=== PATIENT | female | born 1985 | race Caucasian/White ===

== ENCOUNTER 2023-07-23 01:58 | Inpatient (IN) ==
[2023-07-23] MEDS: HALOPERIDOL LACTATE 5 MG/ML 1 ML VIAL ONE (03:00)
[2023-07-23] MEDS: HALOPERIDOL LACTATE 5 MG/ML 1 ML VIAL IM PRN (03:00)
[2023-07-23] MEDS: LORazepam 1 MG/1 ML SYR ED Inj Use IM PRN (03:00)
[2023-07-23 05:01] LABS: Basophils # (auto) 0.05 K/uL (0.00-0.20); Basophils % (auto) 0.5 %; Eosinophils # (auto) 0.12 K/uL (0.00-0.50); Eosinophils % (auto) 1.1 %; Hemoglobin 13.5 g/dl (12.0-16.0); Immature Granulocytes # (auto) 0.03 K/uL (0.01-0.20); Immature Granulocytes % (auto) 0.3 %; Lymphocytes # (auto) 1.45 K/uL (1.20-3.40); Lymphocytes % (auto) 13.8 %; Mean Corpuscular Hemoglobin 29.7 pg (25.0-34.0); Mean Corpuscular Hgb Conc 32.9 g/dL (32.0-36.0); Mean Corpuscular Volume 90.3 fL (80.0-100.0); Mean Platelet Volume 10.6 fL (9.4-12.4); Monocytes # (auto) 0.69 K/uL (0.11-0.59); Monocytes % (auto) 6.6 %; Neutrophils # (auto) 8.16 K/uL (1.40-6.50); Neutrophils % (auto) 77.7 %; Platelet Count 246 K/uL (130-400); RDW Coefficient of Variation 12.5 % (11.5-14.5); RDW Standard Deviation 41.2 fL (36.4-46.3); Red Blood Count 4.54 M/uL (4.20-5.40)
[2023-07-23 05:18] LABS: Albumin Globulin Ratio 1.6 (0.9-2); Albumin Level 4.5 gm/dl (3.4-5.0); BUN Creatinine Ratio 12.9 (10-20); Bilirubin,Total 0.3 mg/dl (0.2-1.0); Calcium 9.2 mg/dl (8.6-10.3); Creatinine Clr Calc Pharmacy 71.5 ml/min; Est GFR (Non-African American) 78.5 ml/min; Globulin 2.9 gm/dl (2.5-4.0); Potassium 4.1 mmol/L (3.5-5.1); Total Protein 7.4 gm/dl (6.0-8.3)
[2023-07-23 05:28] LABS: Acetaminophen < 3 ug/ml (10-30); Salicylate < 3.0 mg/dl (3.0-30)
--- NOTE | 2023-07-23 05:28 | Emergency Department Note ---
Impression & Plan Psychosis ED Provider Note ED Provider Note NAME: LOS PEREZ AGE:38 SEX: Female : 1985 ARRIVES VIA: EMS, police INFORMANT: Patient ED PROVIDER(s): Marie Thurman DO CHIEF COMPLAINT: Mental health evaluation HPI: This is a 38-year-old female who presents emergency department for mental health evaluation. Patient found wandering around in the dark, having parked her car in a turning peter. Patient reported to EMS that she drove here in a rental car from [place]. She could answer some questions of orientation for EMS however reported also seeing demons on the road that made it difficult to drive. She reported she tried to take pictures of them. She does not know anyone in the area and does not know where she was driving to. EMS initially called due to concern for safety although stated PD on scene did not feel they had grounds to 302 as she denied SI and HI. Patient here refusing to answer any additional questions. PAST MEDICAL HISTORY:See Below PAST SURGICAL HISTORY:See Below FAMILY HISTORY:See Below SOCIAL HISTORY:See Below HOME MEDICATIONS:See Below ALLERGIES:See Below VITALS:See Below PHYSICAL EXAMINATION: GENERAL: alert, anxious appearing, well nourished, refusing to stay in her room, refusing to change into scrubs, refusing to answer questions EYE EXAM: normal conjunctiva, PERRL and EOM's grossly intact NECK: supple, no nuchal rigidity, no adenopathy, non-tender LUNGS: Clear to auscultation. Normal chest wall mechanics, no w/r/r HEART: no murmurs, S1 normal and S2 normal ABDOMEN: abdomen soft, non-tender, normo-active bowel sounds, no masses, no rebound or guarding. SKIN: no rashes, petechiae, orbruising UPPER EXTREMITIES: upper extremities are grossly normal. FROM, nml pulses b/l. LOWER EXTREMITIES: No pitting edema. FROM, nml pulses b/l. NEURO EXAM: Can answer some questions of orientation but cannot provide information as to how she got here, why she is here, where she is from, or past medical history and is refusing to answer most questions, cranial nerves II-XII grossly intact, normal speech, no facial droop,nogross weakness of arms, no gross weakness of legs. Gross sensation intact. No ataxia. Vital Signs: reviewed and remarkable Differential Diagnosis: mood disorder, suicidal ideation, anxiety, depression, substance abuse, toxidrome, infection, hypoglycemia, electrolyte abnormalities, ICH as well as others were considered. MEDICAL DECISION MAKING: This is a 38-year-old female who presents emergency department with psychosis. She was brought in by EMS and police. Patient was initially unable to be redirected and was uncooperative with protocols in the department. She refused to allow staff initially to draw labs, refused to change, and was refusing to even stay in her room. She escalated despite attempts at redirection and verbal de-escalation and so was restrained in order to provide additional anxiolytics IM. Once patient calmed down the restraints were removed. 302 petition written by quarter backer. Patient with episcopalian focus, delusions, and paranoia. Noncompliant with medications and follow-up. 302 upheld by me. Patient signed out to Dr. Valle in the morning awaiting final disposition Consultation(s): [id number]: 302 upheld by me after initial petitioning statement from EMS and police. Patient did ultimately provide a phone number that she stated was for her mother however there was no answer or call back from this number. Case management was able to contact a friend who provided additional information stating that she has had worsening abnormal behavior over the last several weeks, recently quit her job, and has not been able to see her children due to her bizarre behavior. Friend reported she does have a prior history of schizophrenia. ER Treatment Provided: See below Diagnostics Interpreted By Me: -Laboratory studies: As stated above and show below. Triage Nursing Note Reviewed Prior/Outside Records Reviewed Past Med/Surg History Social History Smoking Status: Current every day smoker Preferred Language: Setswana Communication Ability: Effective Retail Manager In Training Required: No Beliefs That Will Affect Care: None Feels Safe at Home: Yes Gender Identity: Female Assistive Devices: None Allergies Allergies Allergy/AdvReac Type Severity Reaction Status Date / Time prochlorperazine AdvReac Unknown Verified 07/23/23 02:29 [From Compazine] Results & Data (ED) Vital Signs Vital Signs - 24 hr 07/23/23 02:20 07/23/23 03:28 07/23/23 03:29 Pulse Rate 95 H Pulse Rate [Apical] 104 H Pulse Rate from SpO2 Sensor Pulse Rhythm [Apical] Pulse Strength [Apical] Respiratory Rate 22 Respiratory Effort / Characteristics Respiratory Depth Respiratory Pattern Blood Pressure Blood Pressure [Right Arm] 123/84 Blood Pressure Mean Blood Pressure Mean [Right Arm] 97 Blood Pressure Position [Right Arm] Lying Pulse Oximetry 97 Oxygen Delivery Method Room Air Sepsis New/Unexplained Change in Mental Status N/A Sepsis Action Taken by Nursing No Action Required 07/23/23 04:06 07/23/23 04:30 07/23/23 05:00 Pulse Rate 85 88 Pulse Rate [Apical] 93 H Pulse Rate from SpO2 Sensor Pulse Rhythm [Apical] Regular Pulse Strength [Apical] Normal Respiratory Rate 17 20 19 Respiratory Effort / Characteristics Non-Labored Spontaneous Respiratory Depth Normal Respiratory Pattern Blood Pressure 113/81 114/74 Blood Pressure [Right Arm] 109/71 Blood Pressure Mean 91 87 Blood Pressure Mean [Right Arm] 83 Blood Pressure Position [Right Arm] Lying Pulse Oximetry 98 99 99 Oxygen Delivery Method Room Air Room Air Room Air Sepsis New/Unexplained Change in Mental Status Sepsis Action Taken by Nursing 07/23/23 05:30 07/23/23 06:00 07/23/23 07:22 Pulse Rate 71 82 105 H Pulse Rate [Apical] Pulse Rate from SpO2 Sensor 97 H Pulse Rhythm [Apical] Pulse Strength [Apical] Respiratory Rate 17 16 18 Respiratory Effort / Characteristics Respiratory Depth Respiratory Pattern Blood Pressure 121/73 135/97 Blood Pressure [Right Arm] Blood Pressure Mean 89 109 Blood Pressure Mean [Right Arm] Blood Pressure Position [Right Arm] Pulse Oximetry 98 99 100 Oxygen Delivery Method Room Air Room Air Sepsis New/Unexplained Change in Mental Status Sepsis Action Taken by Nursing 07/23/23 07:30 07/23/23 07:30 07/23/23 08:00 Pulse Rate 92 H 88 87 Pulse Rate [Apical] Pulse Rate from SpO2 Sensor 90 88 88 Pulse Rhythm [Apical] Pulse Strength [Apical] Respiratory Rate 16 16 16 Respiratory Effort / Characteristics Respiratory Depth Respiratory Pattern Blood Pressure 129/92 129/92 117/82 Blood Pressure [Right Arm] Blood Pressure Mean 104 104 93 Blood Pressure Mean [Right Arm] Blood Pressure Position [Right Arm] Pulse Oximetry 99 100 96 Oxygen Delivery Method Sepsis New/Unexplained Change in Mental Status Sepsis Action Taken by Nursing 07/23/23 08:30 07/23/23 09:00 07/23/23 09:30 Pulse Rate 98 H 97 H Pulse Rate [Apical] Pulse Rate from SpO2 Sensor 99 H 98 H Pulse Rhythm [Apical] Pulse Strength [Apical] Respiratory Rate 16 18 Respiratory Effort / Characteristics Respiratory Depth Respiratory Pattern Blood Pressure 114/74 117/76 119/81 Blood Pressure [Right Arm] Blood Pressure Mean 87 89 92 Blood Pressure Mean [Right Arm] Blood Pressure Position [Right Arm] Pulse Oximetry 95 95 Oxygen Delivery Method Sepsis New/Unexplained Change in Mental Status Sepsis Action Taken by Nursing 07/23/23 09:30 07/23/23 10:00 07/23/23 12:03 Pulse Rate 74 89 Pulse Rate [Apical] 89 Pulse Rate from SpO2 Sensor 81 90 Pulse Rhythm [Apical] Pulse Strength [Apical] Respiratory Rate 16 16 16 Respiratory Effort / Characteristics Non-Labored Spontaneous Respiratory Depth Normal Respiratory Pattern Regular Blood Pressure 103/69 Blood Pressure [Right Arm] 117/80 Blood Pressure Mean 80 Blood Pressure Mean [Right Arm] 92 Blood Pressure Position [Right Arm] Pulse Oximetry 98 98 96 Oxygen Delivery Method Room Air Sepsis New/Unexplained Change in Mental Status Sepsis Action Taken by Nursing 07/23/23 14:00 Pulse Rate Pulse Rate [Apical] 89 Pulse Rate from SpO2 Sensor Pulse Rhythm [Apical] Pulse Strength [Apical] Respiratory Rate 14 Respiratory Effort / Characteristics Respiratory Depth Respiratory Pattern Blood Pressure Blood Pressure [Right Arm] 125/88 Blood Pressure Mean Blood Pressure Mean [Right Arm] 100 Blood Pressure Position [Right Arm] Pulse Oximetry 98 Oxygen Delivery Method Room Air Sepsis New/Unexplained Change in Mental Status Sepsis Action Taken by Nursing Laboratory Data 07/23/23 04:45 07/23/23 04:45 Lab Results 07/23/23 07/23/23 07/23/23 Range/Units 04:30 04:45 13:24 WBC 10.50 (4.8-10.8) K/ul RBC 4.54 (4.20-5.40) M/uL Hgb 13.5 (12.0-16.0) g/dl Hct 41.0 (37.0-47.0) % MCV 90.3 (80.0-100.0) fL MCH 29.7 (25.0-34.0) pg MCHC 32.9 (32.0-36.0) g/dL RDW Std Deviation 41.2 (36.4-46.3) fL RDW Coeff of Garth 12.5 (11.5-14.5) % Plt Count 246 (130-400) K/uL MPV 10.6 (9.4-12.4) fL Immature Gran % (Auto) 0.3 % Neut % (Auto) 77.7 % Lymph % (Auto) 13.8 % [place] % (Auto) 6.6 % Eos % (Auto) 1.1 % Baso % (Auto) 0.5 % Neut # (Auto) 8.16 H (1.40-6.50) K/uL Lymph # (Auto) 1.45 (1.20-3.40) K/uL [place] # (Auto) 0.69 H (0.11-0.59) K/uL Eos # (Auto) 0.12 (0.00-0.50) K/uL Baso # (Auto) 0.05 (0.00-0.20) K/uL Immature Gran # (Auto) 0.03 (0.01-0.20) K/uL Sodium 136 (136-145) mmol/L Potassium 4.1 (3.5-5.1) mmol/L Chloride 101 (98-107) mmol/L Carbon Dioxide 29 (21-32) mmol/L Anion Gap 6 (3-11) BUN 12 (6-23) mg/dl Creatinine 0.93 (0.6-1.2) mg/dl Est Cr Clr Drug Dosing 71.5 ml/min Est GFR ( Amer) 91.0 ml/min Est GFR (Non-Af Amer) 78.5 ml/min BUN/Creatinine Ratio 12.9 (10-20) Glucose 101 H (70-99(Fasting)) mg/dl Calcium 9.2 (8.6-10.3) mg/dl Total Bilirubin 0.3 (0.2-1.0) mg/dl AST 21 (13-39) U/L ALT 12 (7-52) U/L Alkaline Phosphatase 37 (34-104) U/L Total Protein 7.4 (6.0-8.3) gm/dl Albumin 4.5 (3.4-5.0) gm/dl Globulin 2.9 (2.5-4.0) gm/dl Albumin/Globulin Ratio 1.6 (0.9-2) TSH 7.399 H (0.300-4.500) uIu/ml Free T4 0.79 (0.61-1.60) ng/dl Urine Color Red Urine Appearance Cloudy A (Clear) Urine pH 8.0 H (4.5-7.5) Ur Specific [place] 1.023 (1.000-1.030) Urine Protein Trace H (Negative) Urine Glucose (UA) Negative (Negative) Urine Ketones Negative (Negative) Urine Blood 3+ H (Negative) Urine Nitrite Positive A (Negative) Urine Bilirubin Negative (Negative) Urine Urobilinogen Negative (Negative) Ur Leukocyte Esterase 2+ H (Negative) Urine WBC (Auto) >30 H (0-5) /hpf Urine RBC (Auto) >30 H (0-4) /hpf U Hyaline Cast (Auto) 1-5 (0-5) /lpf U Epithel Cells (Auto) >30 H (0-5) /lpf Urine Bacteria (Auto) 3+ H (Negative) Urine Test Negative (Negative) Salicylates < 3.0 L (3.0-30) mg/dl Urine Opiates Screen Neg (Neg) Ur Methadone, Qual Neg (Neg) Acetaminophen < 3 L (10-30) ug/ml Urine Barbiturates Neg (Neg) Ur Phencyclidine (PCP) Neg (Neg) U Amphetamin/Meth Scrn Pos H (Neg) MDMA (Ecstasy) Screen Pos H (Neg) U Benzodiazepines Scrn Pos H (Neg) Ur Cocaine Metabolite Neg (Neg) U Marijuana (THC) Screen Neg (Neg) Ethyl Alcohol mg/dL < 10.0 (<10.0) mg/dl SARS-CoV-2, RNA, NAAT NEGATIVE (NEGATIVE) Administered Medications Discontinued Medications Cefdinir (Cefdinir 300 Mg Cap) 600 mg PO ONE STA; Protocol Stop: 07/23/23 14:08 Last Admin: 07/23/23 14:12 Dose: 600 mg Documented By: KLAUS Haloperidol Lactate (Haloperidol Lactate 5 Mg/Ml 1 Ml Vial) 5 mg IM NOW PRN PRN Reason: Agitation Stop: 08/22/23 02:49 Last Admin: 07/23/23 03:00 Dose: 5 mg Documented By: KAILEY Haloperidol Lactate (Haloperidol Lactate 5 Mg/Ml 1 Ml Vial) Confirm Administered Dose 5 mg .ROUTE .STK-MED ONE Stop: 07/23/23 02:53 Last Admin: 07/23/23 03:00 Dose: Not Given Documented By: KAILEY Lorazepam (Lorazepam 1 Mg/1 Ml Syr Ed Inj Use) 2 mg IM ONE PRN PRN Reason: Agitation Stop: 08/22/23 02:49 Last Admin: 07/23/23 03:00 Dose: 2 mg Documented By: KAILEY Discharge Plan Visit Data Stated Complaint: MENTAL HEALTH ISSUES ED Provider: Devonte Salazar Discharge Problem: Psychosis Patient Disposition: Admitted As Inpatient Discharge Instructions Interventions: ED Discharge Assessment Last Done: 07/23/23 17:24
[2023-07-23 05:32] LABS: Thyroid Stimulating Hormone 7.399 uIu/ml (0.300-4.500)
[2023-07-23 06:09] LABS: T4 Free Thyroxine 0.79 ng/dl (0.61-1.60)
--- NOTE | 2023-07-23 07:26 | Emergency Department Note ---
ED Visit Note I received this patient at change of shift signout from Dr. Thurman. Please see her note for initial history and physical exam. The patient is a [age]-year-old female who presented to the emergency department with psychosis. She is not from her area. She required physical as well as chemical restraint. 302 petition has been filled out but the patient is still waiting for formal evaluation and medical clearance. The patient was evaluated by the mental health disease case manager rn. The patient was found to have signs of urinary tract infection on urinalysis. She was treated with oral antibiotics in the emergency department The patient is currently being evaluated by the mental-health disease case manager rn. She was felt to be in need of mental health treatment. Bed search is currently underway. The patient was signed out to Dr. Salazar at change of shift. Please see his note for further disposition and treatment. .
[2023-07-23 13:47] LABS: Pregnancy Test, Urine Negative (Negative)
[2023-07-23 13:55] LABS: Appearance Urine Cloudy (Clear); Bacteria Urine Automated 3+ (Negative); Bilirubin Urine Negative (Negative); Blood Urine 3+ (Negative); Color Urine Red; Epithelial Cell Urine Auto >30 /lpf (0-5); Glucose Urine UA Negative (Negative); Ketones Urine Negative (Negative); Leukocyte Esterase Urine 2+ (Negative); Nitrite Urine Positive (Negative); RBC Urine Automated >30 /hpf (0-4); Specific Gravity Urine 1.023 (1.000-1.030); Urobilinogen Urine Negative (Negative); WBC Urine Automated >30 /hpf (0-5)
[2023-07-23 14:02] LABS: Protein Urine Trace (Negative)
[2023-07-23] MEDS: CEFDINIR 300 MG CAP PO STA (14:12)
[2023-07-23 14:23] LABS: Amphetamines+Metham, Urine Pos (Neg); Barbiturates, Urine Neg (Neg); Benzodiazepine, Urine Pos (Neg); Cocaine, Urine Neg (Neg); MDMA (Ecstacy), Urine Pos (Neg); Marijuana, Urine Neg (Neg); Methadone, Urine Neg (Neg); Opiate, Urine Neg (Neg); Phencyclidine, Urine Neg (Neg)
--- NOTE | 2023-07-23 15:57 | Emergency Department Note ---
ED Visit Note 1555: Sign out from Dr. Valle. 38-year-old female with schizophrenia 3022 awaiting placement. 1725: Patient mated to [address]. .
[2023-07-23] MEDS ORDERED: MAGNESIUM HYDROXIDE SUSP 30 ML UDC PO PRN (17:47)
[2023-07-23] MEDS ORDERED: SODIUM CHLORIDE 0.65% NA SOLN 45 ML (OCEAN) PRN (17:47)
[2023-07-23] MEDS ORDERED: ALUMINUM/MAGNESIUM SUSP 30 ML UDC PO PRN (17:47)
[2023-07-23] MEDS ORDERED: ACETAMINOPHEN 325 MG TAB PO PRN (17:47)
[2023-07-23] MEDS ORDERED: hydrOXYzine HCl 25 MG TAB PO PRN (17:47)
[2023-07-23] MEDS ORDERED: BISMUTH SUBSALICYLATE LIQD 236 ML PO PRN (17:47)
[2023-07-24] MEDS: hydrOXYzine HCl 25 MG TAB PO PRN (01:54)
--- NOTE | 2023-07-24 12:25 | History & Physical ---
Date of Service July 24, 2023 Impression / Recommendations Impression This is a somewhat difficult patient to interview. She is very convinced there are some supernatural or samaritan things going on around her all the time and is made very strong connections between various things in her life. Unfortunately, she came into our hospital with methamphetamine in her system and so it is difficult to sort out exactly what the cause is. There is possibly a family history of psychosis as well. It also sounds like she has been abusing benzodiazepines as well. When she is doing well, it sounds like she has a pretty reasonable life and is able to hold down a job and share custody of her children with her ex. for now, I am calling this unspecified schizophrenia spectrum and other psychotic disorder although it this could be the result of methamphetamine intoxication. Time will tell. 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 Patient is admitted here for safety, further evaluation, and treatment on a 302. We have her in her room that is private because of how bizarre she had been acting. We also will be doing every 15 minute checks for safety. 2. I advised the patient to try to take part in our therapeutic milieu, attend groups and activities, maintain good hygiene, and try not to isolate. 3. I am going to resume her medications which include buspirone, Lexapro, losartan, and some as needed Ativan for now. We will also be watching for any signs of benzodiazepine withdrawal. 4. I am going to start Macrobid to help treat her UTI. 5. We are going to start Latuda 40 mg daily with dinner. I am choosing this because her doctor had written a prescription for it and it is an antipsychotic so it may help with her psychotic symptoms. I reviewed the uses, side effects, and time course and she gave informed consent. She knows we have to give it to her with a meal. 6. I discussed the case with the social work manager. They are going to try to set up a family meeting that this weekend and will try to set up appointments for outpatient care today because most places will be closed for the next 3 days due to the holiday. 7. Disposition is unclear. We will likely discharge her over the weekend because her 302 will be expiring. However, if we reach a point where I am not sure if she is safe I may need to refile a 302 although I hope I do not have to. It is too late to file a 303 today and there is no hearing that can take place in the next 3 days. Today I spent about 110 minutes on the case. This included meeting with the patient, reviewing the chart, nursing report, multidisciplinary team meeting, meeting again with the social work manager, orders, and documentation. Suicide Risk Level Suicide Risk Level: Low (q15 min observation checks) Protective Factors Assessment Employed: No (Quit job 3 weeks ago) Psychiatric History Identifying Data LOS PEREZ is a 38-year-old F from [place], [place] who came into our emergency room. She had been acting bizarrely, allegedly seeing demons when she was on the highway driving her car. She comes to us on a 302 involuntary commitment. Chief Complaint "Following the signs." History of Present Illness Patient has never been to our facility before, but she has been in a psychiatric hospital once before. She says that she had been traveling recently. She had rented a car and driven to some type of nature preserve in [place], [place]. She was following a number of connections she had made among many different things with numbers. She was looking where "the light and the dark combine." She says that her GPS was not working on her phone and she ended up getting lost and driving in circles. She got very frustrated. She started c rying and got lost and apparently approached some type of senior care and asked to use their phone. She says that she asked them to call 911 but they would not do it so she called them herself. In the emergency department she ended up getting agitated which required physical and chemical restraint. She says that she had been reading Steffius's prophecies and the Book of Revelation. She was seeing angels, not demons. She was talking about duality between multiple things. For example motherhood is a positive thing and connected to protons in atoms. Similarly, fatherhood is a negative thing and connected to electrons in atoms. She says that she feels like she is in a movie but she does not know the prescription. Things can sometimes get scary or overwhelming. For example, she said that she was seeing the energy of people. She says that she is currently renting a house in [place], [place]. She was working as a medical staff manager. She says a lot of the people she knows at home know it is happening with her but she feels like they are somehow conspiring against her. They will say things like "you need help," but she thinks that they are lying. She has 3 children including 2 twin 13-year-old boys and a little girl that is about to turn 5. She misses them quite a bit. Sleep's been okay. She says she has been trying to eat. Her mood is described as lonely and frustrated. She has been having avoidance behaviors because she cannot live a normal life right now. Energy has been fine. She is having problems with her concentration. She denies guilt or hopelessness. She denies suicidal or homicidal thoughts. She denies any auditory or visual hallucinations. She smokes cigarettes but denies alcohol use. She has a history of using marijuana. She does admit that she has been using Xanax that she is it sounds like she bought off the street. In her bag staff mention that they found a bag of methamphetamine. She was also positive for methamphetamine and her labs. Past Psychiatric History Previous Psych History: She says that she has been possibly diagnosed with bipolar disorder or possibly schizophrenia. Current Psychiatric Diagnosis: history of psychosis per family Outpatient Services: She sees Dr. Duncan Malik for medications and has a therapist named Dennis. Both of these people are at [facility]. Previous Psych Admissions: She said she was hospitalized at [facility] about 2 years ago. Past Medication Trials: When I asked her if she had been on any other medications, it is not clear. Past Head Trauma/Neuro History Past medical history: She has a history of hypertension and takes losartan. She has had her tonsils and adenoids removed. No history of seizures. No history of head trauma with loss of consciousness. Allergies Allergy/AdvReac Type Severity Reaction Status Date / Time prochlorperazine AdvReac Intermediate dystonia Unverified 07/24/23 12:10 [From Compazine] Family History Family History of: Other-List under Comment Family Mental Health History Comment: Mother has a history of bipolar disorder. Brother has some type of problem but the diagnosis is unknown. Maternal uncle ended his life by suicide. Maternal grandmother has a history of suicide attempt. There is another cousin that has a history of visual hallucinations. Nephew has autism spectrum disorder. Patient says there is a lot of substance use on mother side of the family. Alcohol History Hx of Alcohol Use Over the Past 12 Months: No Smoking Use Have You Smoked or Used Tobacco Products in the Last 30 Days: Yes tobacco type: cigarettes Smoking Status: Current every day smoker Smoking packs per day: 0.5 Substance History Hx of Prescription Med Misuse Over the Past 12 Months: No Hx of Over the Counter Med Misuse Over the Past 12 Months: No Hx of Inhalent Misuse Over the Past 12 Months: No Hx of Organic Substance Use Over the Past 12 Months: No Hx of Illegal Substances/Street Drug Use Over Past 12 Months: No Problems as a Result of Past Substance Use: None Identified Problems as a Result of Past Substance Use Comments: patient denies substances despite UDS positive Personal History Living Arrangements: Home Beliefs That Will Affect Care: None Additional Comments: The patient lives in [place], [place] in a house. She gets to have her kids every other week. She has a bachelors in business administration. She has never been . She is has a boyfriend. She has no legal issues cur rently other than the 302. She has a couple of friends and her boyfriend with whom she feels she can talk. However, she does not feel that they understand what is happening with her. Patient History Social History Smoking Status: Current every day smoker Preferred Language: Ukrainian Communication Ability: Effective Bag Loader Required: No Beliefs That Will Affect Care: None Feels Safe at Home: Yes Gender Identity: Female Assistive Devices: None Review of Systems Review of Systems: Patient denied any cold or flu. No headache or fever. She describes a little blurriness in her vision, but no problems with eyes, ears, nose, teeth, or swallowing otherwise. No pain or swelling in their neck. No wheezing, coughing, or shortness of breath. No chest pain, racing heartbeat, or irregular heart rate. No diarrhea, upset stomach, or constipation. She is describing dysuria and thinks she has a UTI. No problems emptying her bladder, initiating a urine stream, or hematuria. No skin lesions other than some mild acne. No concerns about an STD. No breast tenderness, lumps, or milk production. No muscle weakness or numbness, but she says she feels some tingling in her hands. No tremors. No broken bones. No problems with their joints. No problems with their feet. No bleeding problems. Her period started a couple of days ago and she says its pretty regular in timing. It is usually the same in intensity as well. Physical Exam Psychiatric: Patient was alert and oriented x 3. She was clean but a bit disheveled. Eye contact was good. Speech was normal. Mood was described as "lonely and frustrated." Affect was mostly full. Thought process was delusional and paranoid with ideas of reference. She did not appear to be hallucinating when I met with her. Patient denied any suicidal or homicidal thoughts. Memory was good; she knew her date of , the president's name, and the capital [facility]. Concentration was pretty good; she was able to spell the word world backwards pretty easily. No abnormal movements were seen. Gait was normal. Insight and judgment are impaired. Estimation of intelligence is actually pretty good. Vital Signs (Past 24 Hours): Last Vital Signs Temp 37 C 07/24/23 06:33 Pulse 86 07/24/23 06:34 Resp 16 07/24/23 06:33 BP 131/93 07/24/23 06:34 Pulse Ox 98 07/23/23 18:21 O2 Del Method Room Air 07/23/23 18:21 Exam Statement: A physical exam was performed in the emergency department by Dr. Thurman. Patient was not able to provide information as to how she had gotten here, why she was here, where she was from, or past medical history and was refusing to answer questions. The rest of the physical exam was completely normal. Results & Data ([facility]) Laboratory Results Laboratory Results - last 24 hr 07/23/23 13:24 Urine Color Red Urine Appearance Cloudy A Urine pH 8.0 H Ur Specific Sheldon 1.023 Urine Protein Trace H Urine Glucose (UA) Negative Urine Ketones Negative Urine Blood 3+ H Urine Nitrite Positive A Urine Bilirubin Negative Urine Urobilinogen Negative Ur Leukocyte Esterase 2+ H Urine WBC (Auto) >30 H Urine RBC (Auto) >30 H U Hyaline Cast (Auto) 1-5 U Epithel Cells (Auto) >30 H Urine Bacteria (Auto) 3+ H Urine Test Negative Urine Opiates Screen Neg Ur Methadone, Qual Neg Urine Barbiturates Neg Ur Phencyclidine (PCP) Neg U Amphetamines Confirm Pending U Amphetamin/Meth Scrn Pos H U Methamphetamin Confrm Pending Urine MDEA Pending MDMA (Ecstasy) Screen Pos H MDMA Pending Urine MDMA Pending U OH-Alprazolam Confrm Pending U Benzodiazepines Scrn Pos H 7-Amino Clonazepam Pending Ur Nordiazepam Confirm Pending U OH-ethylflurazepam Pending U Lorazepam Cnf GC/MS Pending U Oxazepam Confm GC/MS Pending Ur Temazepam Confirm Pending U OH-Triazolam Confirm Pending U OH-Midazolam Confirm Pending Ur Cocaine Metabolite Neg U Marijuana (THC) Screen Neg Drug Screen Comment Pending Current Inpatient Medications Current Inpatient Medications: Current Inpatient Medications Acetaminophen (Acetaminophen 325 Mg Tab) 650 mg PO Q4H PRN PRN Reason: Headache or Minor Fever Stop: 08/22/23 17:46 Al Hydrox/Mg Hydrox/Simethicone (Aluminum/Magnesium Susp 30 Ml Udc) 30 ml PO Q4H PRN PRN Reason: GI Upset Stop: 08/22/23 17:46 Bismuth Subsalicylate (Bismuth Subsalicylate Liqd 236 Ml) 15 ml PO PRN PRN PRN Reason: Loose Stool Stop: 08/22/23 17:46 Hydroxyzine HCl (Hydroxyzine Hcl 25 Mg Tab) 50 mg PO HSZ PRN PRN Reason: Insomnia Stop: 08/22/23 17:46 Last Admin: 07/24/23 01:54 Dose: 50 mg Hydroxyzine HCl (Hydroxyzine Hcl 25 Mg Tab) 25 mg PO Q4H PRN PRN Reason: Anxiety Stop: 08/22/23 17:46 Lorazepam (Lorazepam 0.5 Mg Tab) 0.5 mg PO Q6 PRN PRN Reason: Severe Anxiety Stop: 08/22/23 17:47 Magnesium Hydroxide (Magnesium Hydroxide Susp 30 Ml Udc) 30 ml PO DAILY PRN PRN Reason: Constipation Stop: 08/22/23 17:46 Sodium Chloride (Sodium Chloride 0.65% Na Soln 45 Ml ([place])) 1 - 2 sprays NA PRN PRN PRN Reason: Nasal Dryness/Congestion Stop: 08/22/23 17:46
[2023-07-24] MEDS: NITROFURANTOIN MONOHYDRATE 100 MG CAP PO SCH (12:42)
[2023-07-24] MEDS: LORazepam 0.5 MG TAB PO PRN (13:47)
[2023-07-24] MEDS: NICOTINE 7 MG/24 HR TDSY TD SCH (14:38)
[2023-07-24] MEDS: LURASIDONE HCL 20 MG TAB PO SCH (17:48)
[2023-07-24] MEDS: ESCITALOPRAM OXALATE 20 MG TAB PO SCH (21:09)
[2023-07-24] MEDS: LOSARTAN POTASSIUM 50 MG TAB PO SCH (21:09)
[2023-07-24] MEDS: busPIRone 7.5 MG TAB PO SCH (21:11)
--- NOTE | 2023-07-25 14:58 | Psychiatric Progress Note ---
Date of Service July 25, 2023 Impression / Recommendations Impression This is a somewhat difficult patient to interview. She is very convinced there are some supernatural or roman catholic things going on around her all the time and is made very strong connections between various things in her life. Unfortunately, she came into our hospital with methamphetamine in her system and so it is difficult to sort out exactly what the cause is. There is possibly a family history of psychosis as well. It also sounds like she has been abusing benzodiazepines as well. When she is doing well, it sounds like she has a pretty reasonable life and is able to hold down a job and share custody of her children with her ex. for now, I am calling this unspecified schizophrenia spectrum and other psychotic disorder although it this could be the result of methamphetamine intoxication. Time will tell. 07/25/2023: Were seeing more improvement than yesterday. She is obviously less delusional and paranoid today, but there is still a little bit of paranoia. Her 302 will early Friday morning. She had a family meeting today and it went fairly well. Friend will be driving up to pick her up Friday early in the evening. At this point, I think it is more likely that she was coming off of methamphetamine and the psychosis associated with that intoxication. Now that the amphetamine is getting out of her system, I think she is doing much better. Will have her here for another day and make sure of that and hopefully get her out soon. 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 Patient is admitted here for safety, further evaluation, and treatment on a 302. We have her in her room that is private because of how bizarre she had been acting. We also will be doing every 15 minute checks for safety. 2. I advised the patient to try to take part in our therapeutic milieu, attend groups and activities, maintain good hygiene, and try not to isolate. 3. I am going to resume her medications which include buspirone, Lexapro, losartan, and some as needed Ativan for now. We will also be watching for any signs of benzodiazepine withdrawal. 4. I am going to start Macrobid to help treat her UTI. 5. We are going to start Latuda 40 mg daily with dinner. I am choosing this because her doctor had written a prescription for it and it is an antipsychotic so it may help with her psychotic symptoms. I reviewed the uses, side effects, and time course and she gave informed consent. She knows we have to give it to her with a meal. 6. I discussed the case with the nursing home social worker. They are going to try to set up a family meeting that this weekend and will try to set up appointments for outpatient care today because most places will be closed for the next 3 days due to the holiday. 7. Disposition is unclear. We will likely discharge her over the weekend because her 302 will be expiring. However, if we reach a point where I am not sure if she is safe I may need to refile a 302 although I hope I do not have to. It is too late to file a 303 today and there is no hearing that can take place in the next 3 days. 07/25/2023: We will continue with our current level of observation and precautions and watch her carefully. Will continue with her current medications which seem to be offering some good support. Family meeting went well and we are finishing up discharge planning. We will regroup tomorrow and consider discharge soon. Today I spent about 38 minutes on the case. This included meeting with the patient, reviewing the chart, nursing report, multidisciplinary treatment team meeting, orders, and documentation. Suicide Risk Level Suicide Risk Level: Low (q15 min observation checks) Protective Factors Assessment Employed: No (Quit job 3 weeks ago) Interval History Identifying Information LORAINE PEREZ is a 38-year-old F from [place], [place] who came in through our emergency room. She had been acting bizarrely, allegedly seeing demons when she was on the highway driving her car. She comes to us on a 302 involuntary commitment. Chief Complaint "Following the signs." Review of Systems Sleep Information Total Hours of Sleep: 7 Meal Information Percent Meal Consumed - Breakfast: 50 Percent Meal Consumed - Lunch: 100 Percent Meal Consumed - Dinner: 100 Subjective Subjective Today met with the patient, received nursing report, and reviewed her chart. We also had a multidisciplinary treatment team meeting to discuss her care. Loraine is in our hospital due to some very bizarre behavior and agitation requiring a 302. Nurses report that she seems to be improving over time. She attended groups and was interacting with her peers. She was safe. She has appointment set up for July 27. Mother told staff that the patient has a long history of struggling with methamphetamine use. She also has a history of physical aggression and making threats to kill people including siblings and nieces and nephews. When I met with the patient today, she had slept well and had a good appetite. She says her mood is "really good but feeling trapped." She denied hallucinations. She did not bring up all of the delusions that she had brought up with me yesterday. She denied suicidal or homicidal thoughts. She says she is getting along okay with her peers and is tolerating the medications just fine. Physical Exam Psychiatric Patient was alert and cooperative. Eye contact was good. She was clean and well-groomed. Speech was normal although slightly pressured. Mood was described as "really good but feeling trapped." Affect was a little bit anxious. Thought process is logical and goal-directed. There was no evidence of any hallucinations although may be slightly some paranoia but not much. She denied any suicidal or homicidal thoughts. Memory and concentration seems slightly distracted but otherwise okay. She had some mild psychomotor agitation. Gait was normal. Insight and judgment are still impaired. Vital Signs (Past 24 Hours) Last Vital Signs Temp 36.4 C 07/25/23 06:15 Pulse 110 H 07/25/23 06:16 Resp 16 07/25/23 06:15 BP 100/65 07/25/23 06:16 Pulse Ox 98 07/25/23 06:15 O2 Del Method Room Air 07/25/23 06:15 Results & Data ([facility]) Current Inpatient Medications Current Inpatient Medications: Current Inpatient Medications Acetaminophen (Acetaminophen 325 Mg Tab) 650 mg PO Q4H PRN PRN Reason: Headache or Minor Fever Stop: 08/22/23 17:46 Al Hydrox/Mg Hydrox/Simethicone (Aluminum/Magnesium Susp 30 Ml Udc) 30 ml PO Q4H PRN PRN Reason: GI Upset Stop: 08/22/23 17:46 Bismuth Subsalicylate (Bismuth Subsalicylate Liqd 236 Ml) 15 ml PO PRN PRN PRN Reason: Loose Stool Stop: 08/22/23 17:46 Buspirone HCl (Buspirone 7.5 Mg Tab) 15 mg PO BID [facility] Stop: 08/23/23 20:59 Last Admin: 07/25/23 08:21 Dose: 15 mg Escitalopram Oxalate (Escitalopram Oxalate 20 Mg Tab) 20 mg PO HS ATIF Stop: 08/23/23 21:59 Last Admin: 07/24/23 21:09 Dose: 20 mg Hydroxyzine HCl (Hydroxyzine Hcl 25 Mg Tab) 50 mg PO HSZ PRN PRN Reason: Insomnia Stop: 08/22/23 17:46 Last Admin: 07/24/23 01:54 Dose: 50 mg Hydroxyzine HCl (Hydroxyzine Hcl 25 Mg Tab) 25 mg PO Q4H PRN PRN Reason: Anxiety Stop: 08/22/23 17:46 Lorazepam (Lorazepam 0.5 Mg Tab) 0.5 mg PO Q6 PRN PRN Reason: Severe Anxiety Stop: 08/22/23 17:47 Last Admin: 07/25/23 13:54 Dose: 0.5 mg Losartan Potassium (Losartan Potassium 50 Mg Tab) 50 mg PO HS [facility] Stop: 08/23/23 21:59 Last Admin: 07/24/23 21:09 Dose: 50 mg Lurasidone HCl (Lurasidone Hcl 20 Mg Tab) 40 mg PO QDD [facility] Stop: 08/23/23 17:44 Last Admin: 07/24/23 17:48 Dose: 40 mg Magnesium Hydroxide (Magnesium Hydroxide Susp 30 Ml Udc) 30 ml PO DAILY PRN PRN Reason: Constipation Stop: 08/22/23 17:46 Miscellaneous (Remove Nicoderm Patch) 1 each N/A DAILY@0859 [facility] Stop: 08/24/23 08:58 Last Admin: 07/25/23 08:33 Dose: 1 each Nicotine (Nicotine 7 Mg/24 Hr Tdsy) 7 mg TD QAM [facility] Stop: 08/23/23 14:14 Last Admin: 07/25/23 08:25 Dose: 7 mg Nitrofurantoin Macrocrystals (Nitrofurantoin Monohydrate 100 Mg Cap) 100 mg PO BID [facility] Stop: 07/28/23 21:01 Last Admin: 07/25/23 08:21 Dose: 100 mg Sodium Chloride (Sodium Chloride 0.65% Na Soln 45 Ml ([place])) 1 - 2 sprays NA PRN PRN PRN Reason: Nasal Dryness/Congestion Stop: 08/22/23 17:46 Mental Health & Subst Abuse Tx Psychiatrist Name of Psychiatrist: Push[facility] Psychiatrist's Date Of Appointment With Psychiatric Provider: 07/28/23 Time of Appointment with Psychiatrist: 2:00 PM Psychiatric Appointment Comment: [place] [id number] Therapist Name of Therapist: [facility] Therapist's Date of Therapist Appointment: 07/28/23 Time of Therapist Appointment: 2:00 PM Therapy Appointment Comment: [place] [id number] Post Discharge Appointments Primary Care Physician Name Of Family Doctor/PCP: [facility] Date of Future Appointment with PCP: 08/04/23 Time of Appointment with PCP: 1:00 PM Provider Appointment Comment: [id number] [place] [id number]
--- NOTE | 2023-07-26 09:29 | Discharge Summary ---
Date of Service July 26, 2023 History of Present Illness Patient has never been to our facility before, but she has been in a psychiatric hospital once before. She says that she had been traveling recently. She had rented a car and driven to [place] type of nature [place] in [place], [place]. She was following a number of connections she had made among many different things with numbers. She was looking where "the light and the dark combine." She says that her GPS was not working on her phone and she ended up getting lost and driving in circles. She got very frustrated. She started crying and got lost and apparently approached some type of shelter and asked to use their phone. She says that she asked them to call 911 but they would not do it so she called them herself. In the emergency department she ended up getting agitated which required physical and chemical restraint. She says that she had been reading Kamari's prophecies and the Book of Revelation. She was seeing angels, not demons. She was talking about duality between multiple things. For example motherhood is a positive thing and connected to protons in atoms. Similarly, fatherhood is a negative thing and connected to electrons in atoms. She says that she feels like she is in a movie but she does not know the prescription. Things can sometimes get scary or overwhelming. For example, she said that she was seeing the energy of people. She says that she is currently renting a house in [place], [place]. She was working as a medical lab scientist. She says a lot of the people she knows at home know it is happening with her but she feels like they are somehow conspiring against her. They will say things like "you need help," but she thinks that they are lying. She has 3 children including 2 twin 13-year-old boys and a little girl that is about to turn 5. She misses them quite a bit. Sleep's been okay. She says she has been trying to eat. Her mood is described as lonely and frustrated. She has been having avoidance behaviors because she cannot live a normal life right now. Energy has been fine. She is having problems with her concentration. She denies guilt or hopelessness. She denies suicidal or homicidal thoughts. She denies any auditory or visual hallu cinations. She smokes cigarettes but denies alcohol use. She has a history of using marijuana. She does admit that she has been using Xanax that she is it sounds like she bought off the street. In her bag staff mention that they found a bag of methamphetamine. She was also positive for methamphetamine and her labs. Physical Exam Psychiatric Patient was alert and cooperative, but slightly guarded. Eye contact was good. She was clean and well-groomed. Speech was normal. Mood was described as "good, but claustrophobic." Affect was bright. Thought process is logical and goal-directed. There was no evidence of any hallucinations although may be slightly some paranoia. She denied any suicidal or homicidal thoughts. Memory and concentration were good. No abnormal movements. Gait was normal. Insight and judgment are still impaired. Vital Signs (Past 24 Hours) Last Vital Signs Temp 37.0 C 07/26/23 06:39 Pulse 84 07/26/23 06:39 Resp 16 07/26/23 06:39 BP 118/76 07/26/23 06:39 Pulse Ox 96 07/26/23 06:39 O2 Del Method Room Air 07/26/23 06:39 Principal Diagnosis Substance-induced (methamphetamine) psychotic disorder Psychiatric Data The patient was admitted here for safety, further evaluation, and treatment. She took part in our therapeutic milieu, attending groups and activities, maintaining good hygiene, and trying not to isolate. When I first met with her I had concerns about schizophrenia. However over the 2 days since I met her, we did see some distinct improvement in affect. There were no negative symptoms. She still has some odd beliefs, but she was getting along with peers and interacting very appropriately. Given that she came in with some bags of methamphetamine and had methamphetamine in her system, I am leaning more towards a substance-induced psychosis that is resolving. We no longer think she requires psychiatric hospitalization. I started her on Latuda 40 mg with dinner and she is taking it reliably. We continued Lexapro and buspirone. She did not want a family meeting, but she has been communicating with her boyfriend and the nurse has been talking with him. order worker also communicated with the patient's mother who has concerns about the patient's substance use. We also treated her urinary tract infection with Macrobid. She will need to finish that treatment over the next 2 days. Day of Discharge Assessment Today the patient voices readiness for discharge. They note improvement in mood and deny thoughts to harm self or others. Thoughts remain organized and they are improved from admission. There is no evidence of psychosis. They agree to take mediations as prescribed and keep follow-up appointments. They are stable for discharge to outpatient level of care. Transition of Care Transition Of Care Record: was reviewed with the patient Advance Directives Advance Directives Information Provided: Yes Advance Directives: No Mental Health Advance Directive: No Advance Directives on File: No Living Will: No Power of Photogrammetric Tech: No Advance Directives Reason:: Declines as Mental Health Visit. Protective Factors Assessment Employed: No (Quit job 3 weeks ago) Antipsychotic Medications Patient will be discharging on 1 antipsychotic medication for psychotic symptoms. Discharge Data Lab Results 07/23/23 07/23/23 07/23/23 04:30 04:45 13:24 WBC 10.50 RBC 4.54 Hgb 13.5 Hct 41.0 MCV 90.3 MCH 29.7 MCHC 32.9 RDW Std Deviation 41.2 RDW Coeff of Garth 12.5 Plt Count 246 MPV 10.6 Immature Gran % (Auto) 0.3 Neut % (Auto) 77.7 Lymph % (Auto) 13.8 [place] % (Auto) 6.6 Eos % (Auto) 1.1 Baso % (Auto) 0.5 Neut # (Auto) 8.16 H Lymph # (Auto) 1.45 [place] # (Auto) 0.69 H Eos # (Auto) 0.12 Baso # (Auto) 0.05 Immature Gran # (Auto) 0.03 Sodium 136 Potassium 4.1 Chloride 101 Carbon Dioxide 29 Anion Gap 6 BUN 12 Creatinine 0.93 Est Cr Clr Drug Dosing 71.5 Est GFR ( Amer) 91.0 Est GFR (Non-Af Amer) 78.5 BUN/Creatinine Ratio 12.9 Glucose 101 H Calcium 9.2 Total Bilirubin 0.3 AST 21 ALT 12 Alkaline Phosphatase 37 Total Protein 7.4 Albumin 4.5 Globulin 2.9 Albumin/Globulin Ratio 1.6 TSH 7.399 H Free T4 0.79 Urine Color Red Urine Appearance Cloudy A Urine pH 8.0 H Ur Specific [place] 1.023 Urine Protein Trace H Urine Glucose (UA) Negative Urine Ketones Negative Urine Blood 3+ H Urine Nitrite Positive A Urine Bilirubin Negative Urine Urobilinogen Negative Ur Leukocyte Esterase 2+ H Urine WBC (Auto) >30 H Urine RBC (Auto) >30 H U Hyaline Cast (Auto) 1-5 U Epithel Cells (Auto) >30 H Urine Bacteria (Auto) 3+ H Urine Test Negative Salicylates < 3.0 L Urine Opiates Screen Neg Ur Methadone, Qual Neg Acetaminophen < 3 L Urine Barbiturates Neg Ur Phencyclidine (PCP) Neg U Amphetamin/Meth Scrn Pos H MDMA (Ecstasy) Screen Pos H U Benzodiazepines Scrn Pos H Ur Cocaine Metabolite Neg U Marijuana (THC) Screen Neg Ethyl Alcohol mg/dL < 10.0 SARS-CoV-2, RNA, NAAT NEGATIVE Hospital Course (1) Other stimulant use, 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 Patient is admitted here for safety, further evaluation, and treatment on a 302. We have her in her room that is private because of how bizarre she had been acting. We also will be doing every 15 minute checks for safety. 2. I advised the patient to try to take part in our therapeutic milieu, attend groups and activities, maintain good hygiene, and try not to isolate. 3. I am going to resume her medications which include buspirone, Lexapro, losartan, and some as needed Ativan for now. We will also be watching for any signs of benzodiazepine withdrawal. 4. I am going to start Macrobid to help treat her UTI. 5. We are going to start Latuda 40 mg daily with dinner. I am choosing this because her doctor had written a prescription for it and it is an antipsychotic so it may help with her psychotic symptoms. I reviewed the uses, side effects, and time course and she gave informed consent. She knows we have to give it to her with a meal. 6. I discussed the case with the high school social science teacher. They are going to try to set up a family meeting that this weekend and will try to set up appointments for outpatient care today because most places will be closed for the next 3 days due to the holiday. 7. Disposition is unclear. We will likely discharge her over the weekend because her 302 will be expiring. However, if we reach a point where I am not sure if she is safe I may need to refile a 302 although I hope I do not have to. It is too late to file a 303 today and there is no hearing that can take place in the next 3 days. 07/25/2023: We will continue with our current level of observation and precautions and watch her carefully. Will continue with her current medications which seem to be offering some good support. Family meeting went well and we are finishing up discharge planning. We will regroup tomorrow and consider discharge soon. 07/26/2023: Patient will discharge later today to go home with her boyfriend. I sent in prescriptions for Latuda and Macrobid. She already has the Lexapro and buspirone in her belongings. We are going to destroy the rest of the other medications that she brought in. Today I spent about 42 minutes on the case. This included meeting with the patient, reviewing the chart, nursing report, multidisciplinary team meeting, orders, and documentation. Mental Health & Subst Abuse Tx Psychiatrist Name of Psychiatrist: [facility] Psychiatrist's Date Of Appointment With Psychiatric Provider: 07/28/23 Time of Appointment with Psychiatrist: 2:00 PM Psychiatric Appointment Comment: [place] [id number] Therapist Name of Therapist: [employer] Therapist's Date of Therapist Appointment: 07/28/23 Time of Therapist Appointment: 2:00 PM Therapy Appointment Comment: [place] [id number] Post Discharge Appointments Primary Care Physician Name Of Family Doctor/PCP: [facility] Date of Future Appointment with PCP: 08/04/23 Time of Appointment with PCP: 1:00 PM Provider Appointment Comment: [address] [place] [address] Discharge Plan Discharge Items Patient Disposition: Home - Self-Care Reason For Visit: UNSPECIFIED PSYCHOSIS Discharge Diagnosis: Substance-Induced (methamphetamine) psychotic disorder Activity: Resume your previous activity Non-emergency contact: Primary Care Provider, Psychiatrist and Therapist Call non-emergency contact if: you have any medication questions and your symptoms worsen Follow-up/Referrals: Dottie Gordon DO [Primary Care Provider] - Diet: Regular Addtl Attending Provider Instructions: SPECIAL CARE INSTRUCTIONS: 1. Follow through with your scheduled aftercare appointments. If unable to keep an appointment, please call to reschedule. 2. Take your medication only as prescribed. Medication should not be changed or stopped without the approval of your doctor. In the event of worsening symptoms or concerns about side effects, contact your doctor immediately. 3. Utilize new healthy coping skills, anger management skills, and stress management skills learned during your hospitalization. Journal feelings and process them with a support person. Identify stressors or situations that may result in relapse, deterioration or inappropriate behaviors and develop a plan to deal with those issues. 4. If your coping skills are ineffective and you are in crisis, contact your outpatient providers for direction. If unable to reach your providers, please call the [facility] CRISIS LINE AT , go to the [facility] walk-in center at [address] [facility], or go to the closest Emergency Room. 5. Avoid alcohol and un-prescribed drugs. 6. You have been provided with the Mental Health Advance Directives Pamphlet for your review. 7. Your condition is stable for discharge to outpatient level of care, but recovery is an ongoing process. Ifthoughts to harm yourself or others return, follow the safety plan developed during your stay. Planning for a safe return home includes securing weapons. Our treatment team recommends weaponsbe removed from the home until your outpatient provider reassesses your progress. In rare cases where the items themselvescannot be removed, guns and ammunitionshould be secured separatelyand keys stored by a reliable personoutside of the home. If you were admitted on an involuntary commitment, the police or other legal authorities may be involved in this process. AFTERCARE APPOINTMENTS: * Please call your insurance company prior to your scheduled appointment to confirm your aftercare providers are covered. Take your insurance information to your appointments. WHO TO CALL AND WHEN: Medical Emergencies: For questions or emergencies related to your hospital stay, please contact the Inpatient Behavioral Health Unit at [phone]. A law writer is on-call 18/11 for the Behavioral Health Unit for emergencies At any time you feel your situation is an emergency, you may also call 911 immediately. Pending Studies at Discharge: No Stand-Alone Forms: My [facility] [employer], Smoking Cessation Medications and DC Order Prescriptions: New losartan 50 mg Tablet 50 mg PO HS Qty: 30 0RF nitrofurantoin monohyd/m-cryst 100 mg Capsule 100 mg PO BID Qty: 5 0RF Rx Instructions: Finish up inpatient course lurasidone 20 mg Tablet 40 mg PO QDD Qty: 30 0RF lurasidone [Latuda] 40 mg tablet 40 mg PO .qpm cc Qty: 30 0RF Rx Instructions: must administer with food (at least 350 calories) buspirone 7.5 mg Tablet 15 mg PO BID Qty: 1 0RF escitalopram oxalate 20 mg Tablet 20 mg PO HS Qty: 1 0RF Discharge Orders: Discharge Order (Routine); Ordered 07/26/23 Ordered By: Scout Flores Jr Admission Data Admit Date/Time: 07/23/23 17:33 Attending Provider: Scout Flores Jr Admit Provider: Scout Flores Jr Primary Care Provider: Dottie Gordon Coding Level of Care Code 55248 D/C day mgmt > 30 min Diagnoses Other stimulant use, 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
[2023-07-26] MEDS ORDERED: DESTROY THIS MEDICATION ONE (10:10)
[2023-07-28 11:02] LABS: 7-Aminoclonaz, Confirm NEGATIVE ng/mL (<25); Amphetamine Urine, Confirm 1908 ng/mL (<250); Hydro-Alp Ur, GC/MS 335 ng/mL (<25); Hydroxyethylflurazepam, Conf NEGATIVE ng/mL (<50); Hydroxymidazolam Ur, GC/MS NEGATIVE ng/mL (<50); Hydroxytriazolam NEGATIVE ng/mL (<50); Lorazepam, Ur GC/MS 1150 ng/mL (<50); MDA negative; MDEA negative; MDMA (Ecstasy) Urine, Confirm negative; Methamphetamine, Ur Confirm 13684 ng/mL (<250); Nordiazepam, Confirm NEGATIVE ng/mL (<50); Oxazepam Ur, GC/MS NEGATIVE ng/mL (<50); Temazepam, Confirm NEGATIVE ng/mL (<50)
== END 2023-07-26 19:00 | disposition home or self-care (01) | DRG 897 ==
LOC: ED 01:58 → 3S 17:24